=== PATIENT | male | born 1940 | race Caucasian/White ===

== ENCOUNTER 2020-05-21 15:19 | Inpatient (IN) ==
[2020-05-21] MEDS ORDERED: 0.9 % SODIUM CHLORIDE 1,000 ML IV ONE ×2 (16:06→18:40)
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
--- NOTE | 2020-05-21 16:41 | Cat Scan Report ---
CLINICAL INFORMATION: Syncope. History of CVA. COMPARISON: None. TECHNIQUE: 2.5 mm helical slices were obtained in the skull base to vertex. Following reconstruction, axial reformatted images were reviewed at bone and parenchymal windows. The exam was performed using radiation dose optimization techniques including, but not limited to, automated exposure control, adjustment of the mA and/or kV according to patient size and use of iterative reconstruction technique. FINDINGS: The ventricles, sulci, fissures, and cisterns are symmetrically large compatible with mild age-related atrophy.. No extra-axial fluid collections are identified. Mild patchy chronic ischemic changes, in the cerebral white matter, expected for age.. There is no evidence of hemorrhage, mass effect, or edema. Bone windows show no osseous abnormality. IMPRESSION: Mild atrophy and chronic ischemic changes in the cerebral white matter - expected for age.. Interpreted and Authenticated by: Jaspal Arzola 05/21/20
--- NOTE | 2020-05-21 16:46 | XRay Report ---
CLINICAL INFORMATION: syncope COMPARISON: 05/30/2014 FINDINGS: The heart is moderately enlarged but unchanged. Sternotomy changes noted. Mediastinum and pulmonary vessels are normal. The lungs are clear. No effusions. Malunified old right-sided rib fractures seen as before IMPRESSION: Moderate stable cardiomegaly. No acute disease Interpreted and Authenticated by: Jaspal Arzola 05/21/20
[2020-05-21 17:00] LABS: Basophils # (Auto) 0.03 K/mcL (0.00-0.20); Basophils % (Auto) 0.4 % (0.0-2.0); Eosinophils # (Auto) 0.14 K/mcL (0.00-0.70); Eosinophils % (Auto) 2.1 % (0.0-7.0); Hematocrit 40.2 % (41.0-55.0); Lymphocytes # (Auto) 1.83 K/mcL (1.50-4.80); Lymphocytes % (Auto) 27.4 % (15.0-49.0); Mean Corpuscular HGB Conc 32.3 g/dL (31.0-36.0); Mean Platelet Volume 11.3 fL (7.4-10.4); Monocytes # (Auto) 0.88 K/mcL (0.10-0.90); Monocytes % (Auto) 13.2 % (1.0-12.0); Neutrophils % (Auto) 56.9 % (38.0-78.0); Platelet Count 187 K/mcL (140-440); RBC 4.42 M/mcL (4.50-5.90); Red Cell Distribution Width 14.5 % (11.5-14.5); WBC 6.7 K/mcL (4.5-11.0)
[2020-05-21 18:38] LABS: ALT/SGPT 21 U/L (<40); AST/SGOT 19 U/L (<40); Albumin/Globulin Ratio 1.1 (1.0-2.3); Alkaline Phosphatase 109 U/L (39-117); Bilirubin,Total 0.3 mg/dL (0.1-1.0); Blood Urea Nitrogen 18 mg/dL (8-23); Calcium 9.2 mg/dL (8.6-10.4); Carbon Dioxide 23 mmol/L (22-30); Chloride 102 mmol/L (96-108); Globulin 3.6 gm/dL (2.2-3.7); Glomerular Filtration Rate 84; Glucose 123 mg/dL (70-105)
--- NOTE | 2020-05-21 19:59 | Emergency Department Note ---
HPI General Chief complaint: Syncope Stated complaint: Syncope Time Seen by Provider: 05/21/20 15:34 Source: patient Mode of arrival: ambulatory Limitations: no limitations History of Present Illness HPI Narrative: Narrative: Related Data Home Medications Medication Instructions Recorded Confirmed metformin [Fortamet] 1,000 mg PO BID 07/06/15 05/21/20 metoprolol tartrate 25 mg PO DAILY 07/06/15 05/21/20 sitagliptin [Januvia] 100 mg PO DAILY 07/06/15 05/21/20 Aspirin Low Dose 81 mg PO DAILY 05/21/20 05/21/20 atorvastatin 20 mg PO DAILY 05/21/20 05/21/20 glimepiride 2 mg PO DAILY 05/21/20 05/21/20 pioglitazone 30 mg PO DAILY 05/21/20 05/21/20 Allergies Allergy/AdvReac Type Severity Reaction Status Date / Time Penicillins Allergy Hives Verified 07/06/15 08:18 Review of Systems ROS ROS Narrative: Narrative: [facility] Narrative Patient History Narrative: Narrative: Medical/Surgical/Family History All Active Problems (Updated 05/21/20 @ 18:39 by Pierre Jorgensen MD) Syncope (Acute) Diabetes mellitus type 2 in obese (Acute) Hypertension (Acute) Strain of lumbar region (Acute) Medical History (Updated 05/21/20 @ 18:39 by Pierre Jorgensen MD) History of retinal vein occlusion (Acute) Strain of lumbar region (Acute) Surgical History (Updated 05/21/20 @ 16:14 by Pierre Jorgensen MD) History of heart valve replacement (Acute) Social History Smoking Status: Former smoker Exam Narrative Narrative: Narrative: General Limitations: no limitations Course Reevaluation(s) Reevaluation #1: After receiving this patient at change of shift with a CMP pending, I contacted the hospitalist to see about arranging for an overnight observation. Dr. Jordan asked me to run this case by a booster pump oiler and the booster pump oiler felt this patient can stay locally, Dr. Jordan said he would be happy to place into observation. Time: 19:46 Reevaluation #2: I spoke to a booster pump oiler, Dr. Stephens. He suggested observation overnight here locally with telemetry and then an echo tomorrow. He suggested any abnormality that their group could be contacted. He said if the studies were normal, they would recommend discharging the patient with outpatient cardiology follow-up. Time: 19:55 Vital Signs Vital signs: Vital Signs Temperature 97.9 F 05/21/20 15:19 Pulse Rate 68 05/21/20 15:19 Respiratory Rate 20 05/21/20 15:19 Blood Pressure 165/75 05/21/20 15:19 Pulse Oximetry (%) 98 05/21/20 15:19 Temperature 97.9 F 05/21/20 15:19 Pulse Rate 64 05/21/20 19:47 Respiratory Rate 20 05/21/20 15:19 Blood Pressure 149/65 05/21/20 19:47 Pulse Oximetry (%) 96 05/21/20 19:47 MDM MDM Narrative Medical decision making narrative: Narrative: Lab Data Result diagrams: 05/21/20 16:23 05/21/20 17:34 Labs: Lab Results 05/21/20 05/21/20 05/21/20 Range/Units 16:22 16:23 16:23 WBC 6.7 (4.5-11.0) K/mcL RBC 4.42 L (4.50-5.90) M/mcL Hgb 13.0 L (13.5-16.5) g/dL Hct 40.2 L (41.0-55.0) % MCV 91.0 (80.0-100.0) fL MCH 29.4 (26.0-34.0) pg MCHC 32.3 (31.0-36.0) g/dL RDW 14.5 (11.5-14.5) % Plt Count 187 (140-440) K/mcL MPV 11.3 H (7.4-10.4) fL Neut % (Auto) 56.9 (38.0-78.0) % Lymph % (Auto) 27.4 (15.0-49.0) % [place] % (Auto) 13.2 H (1.0-12.0) % Eos % (Auto) 2.1 (0.0-7.0) % Baso % (Auto) 0.4 (0.0-2.0) % Lymph # (Auto) 1.83 (1.50-4.80) K/mcL Tyler # (Auto) 0.88 (0.10-0.90) K/mcL Eos # (Auto) 0.14 (0.00-0.70) K/mcL Baso # (Auto) 0.03 (0.00-0.20) K/mcL Absolute Neutrophils 3.79 (1.80-8.00) K/mcL D-Dimer 0.52 H (0.27-0.50) ug/mL VBG Lactic Acid (0.5-2.0) mmol/L Sodium (133-145) mmol/L Potassium (3.3-5.1) mmol/L Chloride (96-108) mmol/L Carbon Dioxide (22-30) mmol/L Anion Gap (8.0-16.0) BUN (8-23) mg/dL Creatinine (0.7-1.2) mg/dL GFR Calculation Glucose (70-105) mg/dL Calcium (8.6-10.4) mg/dL Magnesium (1.6-2.5) mg/dL Total Bilirubin (0.1-1.0) mg/dL AST (<40) U/L ALT (<40) U/L Alkaline Phosphatase (39-117) U/L Troponin T (<0.03) ng/mL NT-Pro-B Natriuret Pep (<450.0) pg/mL Total Protein (5.9-8.4) gm/dL Albumin (3.2-5.2) gm/dL Globulin (2.2-3.7) gm/dL Albumin/Globulin Ratio (1.0-2.3) Prolactin (4.0-15.2) ng/mL 05/21/20 05/21/20 05/21/20 Range/Units 16:23 16:23 17:34 WBC (4.5-11.0) K/mcL RBC (4.50-5.90) M/mcL Hgb (13.5-16.5) g/dL Hct (41.0-55.0) % MCV (80.0-100.0) fL MCH (26.0-34.0) pg MCHC (31.0-36.0) g/dL RDW (11.5-14.5) % Plt Count (140-440) K/mcL MPV (7.4-10.4) fL Neut % (Auto) (38.0-78.0) % Lymph % (Auto) (15.0-49.0) % Tyler % (Auto) (1.0-12.0) % Eos % (Auto) (0.0-7.0) % Baso % (Auto) (0.0-2.0) % Lymph # (Auto) (1.50-4.80) K/mcL Tyler # (Auto) (0.10-0.90) K/mcL Eos # (Auto) (0.00-0.70) K/mcL Baso # (Auto) (0.00-0.20) K/mcL Absolute Neutrophils (1.80-8.00) K/mcL D-Dimer (0.27-0.50) ug/mL VBG Lactic Acid 2.3 H (0.5-2.0) mmol/L Sodium 140 (133-145) mmol/L Potassium 4.6 (3.3-5.1) mmol/L Chloride 102 (96-108) mmol/L Carbon Dioxide 23 (22-30) mmol/L Anion Gap 15.0 (8.0-16.0) BUN 18 (8-23) mg/dL Creatinine 0.8 (0.7-1.2) mg/dL GFR Calculation 84 Glucose 123 H (70-105) mg/dL Calcium 9.2 (8.6-10.4) mg/dL Magnesium (1.6-2.5) mg/dL Total Bilirubin 0.3 (0.1-1.0) mg/dL AST 19 (<40) U/L ALT 21 (<40) U/L Alkaline Phosphatase 109 (39-117) U/L Troponin T (<0.03) ng/mL NT-Pro-B Natriuret Pep (<450.0) pg/mL Total Protein 7.6 (5.9-8.4) gm/dL Albumin 4.0 (3.2-5.2) gm/dL Globulin 3.6 (2.2-3.7) gm/dL Albumin/Globulin Ratio 1.1 (1.0-2.3) Prolactin (4.0-15.2) ng/mL 05/21/20 05/21/20 Range/Units 17:34 17:34 WBC (4.5-11.0) K/mcL RBC (4.50-5.90) M/mcL Hgb (13.5-16.5) g/dL Hct (41.0-55.0) % MCV (80.0-100.0) fL MCH (26.0-34.0) pg MCHC (31.0-36.0) g/dL RDW (11.5-14.5) % Plt Count (140-440) K/mcL MPV (7.4-10.4) fL Neut % (Auto) (38.0-78.0) % Lymph % (Auto) (15.0-49.0) % Tyler % (Auto) (1.0-12.0) % Eos % (Auto) (0.0-7.0) % Baso % (Auto) (0.0-2.0) % Lymph # (Auto) (1.50-4.80) K/mcL Tyler # (Auto) (0.10-0.90) K/mcL Eos # (Auto) (0.00-0.70) K/mcL Baso # (Auto) (0.00-0.20) K/mcL Absolute Neutrophils (1.80-8.00) K/mcL D-Dimer (0.27-0.50) ug/mL VBG Lactic Acid (0.5-2.0) mmol/L Sodium (133-145) mmol/L Potassium (3.3-5.1) mmol/L Chloride (96-108) mmol/L Carbon Dioxide (22-30) mmol/L Anion Gap (8.0-16.0) BUN (8-23) mg/dL Creatinine (0.7-1.2) mg/dL GFR Calculation Glucose (70-105) mg/dL Calcium (8.6-10.4) mg/dL Magnesium (1.6-2.5) mg/dL Total Bilirubin (0.1-1.0) mg/dL AST (<40) U/L ALT (<40) U/L Alkaline Phosphatase (39-117) U/L Troponin T < 0.01 (<0.03) ng/mL NT-Pro-B Natriuret Pep (<450.0) pg/mL Total Protein (5.9-8.4) gm/dL Albumin (3.2-5.2) gm/dL Globulin (2.2-3.7) gm/dL Albumin/Globulin Ratio (1.0-2.3) Prolactin 13.9 (4.0-15.2) ng/mL Discharge Plan Patient/Caregiver Discharge Instructions Pt seen by YARD PIPE GRADER/PA only: No Clinical Impression: Syncope Qualifiers: Syncope type: unspecified Qualified Code(s): R55 - Syncope and collapse Patient Disposition: Still a Patient Condition: Fair Follow up with: Axel Logan MD [Primary Care Provider] - Prescriptions: No Action metoprolol tartrate 25 MG tablet 25 mg PO DAILY RF: 0 metformin [Fortamet] 1,000 MG tablet extended release 24hr 1,000 mg PO BID RF: 0 Januvia 100 MG tablet 100 mg PO DAILY RF: 0 Aspirin Low Dose 81 mg tablet 81 mg PO DAILY RF: 0 atorvastatin 20 mg tablet 20 mg PO DAILY RF: 0 glimepiride 4 mg tablet 2 mg PO DAILY RF: 0 pioglitazone 30 mg tablet 30 mg PO DAILY RF: 0
[2020-05-21] MEDS ORDERED: IOPAMIDOL 100 ML BOTTLE IV ONE (21:36)
[2020-05-21] MEDS ORDERED: ONDANSETRON 4 MG/2 ML VIAL IV PRN (21:44)
[2020-05-21] MEDS ORDERED: MAGNESIUM SULFATE 2 GM/50 ML BAG IV PRN (21:44)
[2020-05-21] MEDS ORDERED: MELATONIN 3 MG TABLET PO PRN (21:44)
[2020-05-21] MEDS ORDERED: DEXTROSE 31 GM ORAL.SUSP PO PRN (21:44)
[2020-05-21] MEDS ORDERED: POTASSIUM CHLORIDE 40 MEQ in DEXTROSE 5% IN WATER 500 ML IV PRN (21:44)
[2020-05-21] MEDS ORDERED: ACETAMINOPHEN 650 MG/65 ML BAG IV PRN (21:44)
[2020-05-21] MEDS ORDERED: DEXTROSE 50% 50 ML VIAL IV PRN (21:44)
[2020-05-21] MEDS ORDERED: BISACODYL 10 MG SUPP.RECT PR PRN (21:44)
[2020-05-21] MEDS ORDERED: POLYETHYLENE GLYCOL 3350 17 GM PACKET PO PRN (21:44)
[2020-05-21] MEDS ORDERED: ACETAMINOPHEN 325 MG TABLET PO PRN (21:44)
[2020-05-21] MEDS ORDERED: ONDANSETRON 4 MG ODT TABLET SL PRN (21:44)
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
[2020-05-21] MEDS: 0.9 % SODIUM CHLORIDE 1,000 ML IV SCH (22:00)
[2020-05-21] MEDS: DOCUSATE SODIUM 100 MG CAPSULE PO SCH (22:15)
[2020-05-21] MEDS: SENNOSIDES/DOCUSATE SODIUM 1 TAB TABLET PO SCH (22:16)
[2020-05-21] MEDS: INSULIN LISPRO 1 UNIT/0.01 ML UNIT SQ SCH (22:27)
[2020-05-21] MEDS: 0.9 % SODIUM CHLORIDE 10 ML SYRINGE IV SCH (22:35)
[2020-05-21] MEDS: HEPARIN 5,000 UNIT/ML VIAL SQ SCH (22:35)
[2020-05-22] MEDS: 0.9 % SODIUM CHLORIDE 10 ML SYRINGE IV SCH ×3 (04:32→20:15)
[2020-05-22 06:23] LABS: Basophils # (Auto) 0.03 K/mcL (0.00-0.20); Basophils % (Auto) 0.5 % (0.0-2.0); Eosinophils # (Auto) 0.14 K/mcL (0.00-0.70); Eosinophils % (Auto) 2.5 % (0.0-7.0); Hematocrit 36.3 % (41.0-55.0); Hemoglobin 11.5 g/dL (13.5-16.5); Lymphocytes # (Auto) 1.93 K/mcL (1.50-4.80); Lymphocytes % (Auto) 34.6 % (15.0-49.0); Mean Cell Volume 91.9 fL (80.0-100.0); Mean Corpuscular HGB Conc 31.7 g/dL (31.0-36.0); Mean Platelet Volume 11.6 fL (7.4-10.4); Monocytes # (Auto) 0.88 K/mcL (0.10-0.90); Monocytes % (Auto) 15.8 % (1.0-12.0); Neutrophils % (Auto) 46.6 % (38.0-78.0); Platelet Count 152 K/mcL (140-440); RBC 3.95 M/mcL (4.50-5.90); Red Cell Distribution Width 14.6 % (11.5-14.5); WBC 5.6 K/mcL (4.5-11.0)
[2020-05-22 07:11] LABS: ALT/SGPT 17 U/L (<40); AST/SGOT 18 U/L (<40); Albumin 3.6 gm/dL (3.2-5.2); Albumin/Globulin Ratio 1.1 (1.0-2.3); Alkaline Phosphatase 85 U/L (39-117); Bilirubin,Direct < 0.2 mg/dL (<0.3); Bilirubin,Total 0.3 mg/dL (0.1-1.0); Blood Urea Nitrogen 16 mg/dL (8-23); Calcium 8.8 mg/dL (8.6-10.4); Carbon Dioxide 27 mmol/L (22-30); Chloride 106 mmol/L (96-108); Globulin 3.2 gm/dL (2.2-3.7); Glomerular Filtration Rate 70; Glucose 124 mg/dL (70-105); Lactate Dehydrogenase 190 U/L (135-225); Phosphorous 3.7 mg/dL (2.5-4.5); Triglycerides 141 mg/dL (<150); Uric Acid 5.5 mg/dL (2.5-8.0)
[2020-05-22] MEDS: metFORMIN 500 MG TABLET PO SCH ×2 (08:14→17:07)
[2020-05-22] MEDS: HEPARIN 5,000 UNIT/ML VIAL SQ SCH (08:15)
[2020-05-22] MEDS: DOCUSATE SODIUM 100 MG CAPSULE PO SCH ×2 (08:15→08:28)
[2020-05-22] MEDS: MULTIVIT,THER IRON,CA,FA & MIN 1 TABLET PO SCH ×2 (08:15→08:29)
[2020-05-22] MEDS: INSULIN LISPRO 1 UNIT/0.01 ML UNIT SQ SCH ×3 (08:19→17:07)
[2020-05-22] MEDS ORDERED: sitaGLIPtin 100 MG TABLET PO SCH (09:00)
[2020-05-22] MEDS ORDERED: METOPROLOL TARTRATE 25 MG TABLET PO SCH (09:00)
[2020-05-22] MEDS ORDERED: PIOGLITAZONE 15 MG TABLET PO SCH (09:00)
[2020-05-22] MEDS ORDERED: ATORVASTATIN 20 MG TABLET PO SCH (09:00)
[2020-05-22] MEDS ORDERED: ASPIRIN 81 MG TAB.CHEW PO SCH (09:00)
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
[2020-05-22] MEDS: 0.9 % SODIUM CHLORIDE 1,000 ML IV SCH (17:08)
[2020-05-22] MEDS ORDERED: ATROPINE SULFATE 1 MG/10 ML SYRINGE IV ONE ×3 (20:30→21:20)
[2020-05-22] MEDS ORDERED: morphine 4 MG/ML VIAL IV ONE ×2 (20:30→21:15)
[2020-05-22] MEDS ORDERED: morphine 4 MG/ML VIAL ONE ×2 (20:41→21:24)
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
[2020-05-22] MEDS ORDERED: prednisoLONE 1% OPHTH DROPS 1ML BOTTLE OD SCH (21:00)
[2020-05-22] MEDS ORDERED: MIDAZOLAM 2 MG/2 ML VIAL ONE (21:24)
[2020-05-22] MEDS ORDERED: 0.9 % SODIUM CHLORIDE 250 ML IV SCH (21:30)
[2020-05-22] MEDS ORDERED: EPINEPHrine 4 MG in 0.9 % SODIUM CHLORIDE 246 ML IV SCH (21:30)
[2020-05-22] MEDS ORDERED: EPINEPHrine 1 MG/ML AMPUL ONE (21:31)
[2020-05-22] MEDS ORDERED: MIDAZOLAM 2 MG/2 ML VIAL IV ONE (21:45)
[2020-05-23] MEDS: SENNOSIDES/DOCUSATE SODIUM 1 TAB TABLET PO SCH (00:08)
[2020-05-23] MEDS: DOCUSATE SODIUM 100 MG CAPSULE PO SCH (00:09)
[2020-05-23] MEDS: HEPARIN 5,000 UNIT/ML VIAL SQ SCH (00:09)
[2020-05-23] MEDS: INSULIN LISPRO 1 UNIT/0.01 ML UNIT SQ SCH (00:09)
[2020-05-23] MEDS ORDERED: DORZOLAMIDE TIMOLOL OD SCH (09:00)
[2020-05-23] MEDS ORDERED: CARBOXYMETHYLCELLULOSE SODIUM 1 EACH DROPER.GEL OU SCH (09:00)
== END 2020-05-22 22:45 | disposition short-term general hospital (02) | DRG 310 ==
LOC: ICU 15:19 → ED 15:19 → ICU 21:43
PROVIDERS: ADMIT Internal Medicine; ATTEND Internal Medicine

== ENCOUNTER 2023-07-16 16:49 | Inpatient (IN) ==
[2023-07-16] MEDS ORDERED: IOPAMIDOL 100 ML BOTTLE IV ONE (16:50)
[2023-07-16 18:10] LABS: ALT/SGPT 9 U/L (<40); AST/SGOT 19 U/L (<40); Albumin 4.2 gm/dL (3.2-5.2); Albumin/Globulin Ratio 1.3 (1.0-2.3); Alkaline Phosphatase 86 U/L (39-117); Bilirubin,Total 0.5 mg/dL (0.1-1.0); Blood Urea Nitrogen 19 mg/dL (8-23); Calcium 8.8 mg/dL (8.6-10.4); Carbon Dioxide 24 mmol/L (22-30); Chloride 100 mmol/L (96-108); Globulin 3.2 gm/dL (2.2-3.7); Glomerular Filtration Rate 69; Glucose 163 mg/dL (70-105)
[2023-07-16 18:27] LABS: Basophils # (Auto) 0.02 K/mcL (0.00-0.30); Basophils % (Auto) 0.2 % (0.0-2.0); Eosinophils # (Auto) 0.02 K/mcL (0.00-0.70); Eosinophils % (Auto) 0.2 % (0.0-7.0); Hematocrit 38.2 % (40.1-51.0); Hemoglobin 12.4 g/dL (13.7-17.5); Lymphocytes # (Auto) 1.05 K/mcL (1.50-4.80); Mean Corpuscular HGB Conc 32.5 g/dL (31.0-36.0); Monocytes # (Auto) 1.69 K/mcL (0.10-0.90); Monocytes % (Auto) 14.5 % (1.0-12.0); Neutrophils % (Auto) 75.7 % (38.0-78.0); Platelet Count 169 K/mcL (140-440); RBC 4.29 M/mcL (4.63-6.08); Red Cell Distribution Width 13.9 % (11.5-14.5); WBC 11.7 K/mcL (4.5-11.0)
[2023-07-16] MEDS: LACTATED RINGERS 1,000 ML IV ONE (19:50)
[2023-07-16] MEDS: PIPERACILLIN SODIUM/TAZOBACTAM 3.375 GM in DEXTROSE 5% IN WATER 50 ML IV ONE (19:53)
[2023-07-16] MEDS: LACTATED RINGERS 1,000 ML IV SCH (19:53)
[2023-07-16 21:34] LABS: Lymphocytes % 10 % (15-49); Monocytes % (Manual) 10 % (1-12); Platelet Estimate NORMAL (Normal); RBC Morphology NORMAL (Normal); Segmented Neutrophils % 80 % (38-78)
[2023-07-16] MEDS: VANCOMYCIN IV ONE (22:11)
[2023-07-16] MEDS: SODIUM CHLORIDE 0.9% IV ONE (22:11)
[2023-07-16] MEDS ORDERED: DEXTROSE 50% 50 ML VIAL IV PRN (22:49)
[2023-07-16] MEDS ORDERED: POLYETHYLENE GLYCOL 3350 17 GM PACKET PO PRN (22:49)
[2023-07-16] MEDS ORDERED: POTASSIUM CHLORIDE 20 MEQ TABLET PO PRN ×2 (22:49)
[2023-07-16] MEDS ORDERED: MAGNESIUM SULFATE 2 GM/50 ML BAG IV PRN (22:49)
[2023-07-16] MEDS ORDERED: ONDANSETRON 4 MG/2 ML VIAL IV PRN (22:49)
[2023-07-16] MEDS ORDERED: METOPROLOL TARTRATE 5 MG/5 ML VIAL IV PRN (22:49)
[2023-07-16] MEDS ORDERED: POTASSIUM CHLORIDE 40 MEQ in DEXTROSE 5% IN WATER 500 ML IV PRN (22:49)
[2023-07-16] MEDS ORDERED: diphenhydrAMINE 25 MG CAPSULE PO PRN (22:49)
[2023-07-16] MEDS ORDERED: ACETAMINOPHEN 325 MG TABLET PO PRN (22:49)
[2023-07-16] MEDS ORDERED: IPRATROPIUM/ALBUTEROL 3 ML AMPUL.NEB NEB PRN (22:49)
[2023-07-16] MEDS ORDERED: DEXTROSE 31 GM ORAL.SUSP PO PRN (22:49)
[2023-07-16] MEDS ORDERED: SENNOSIDES 1 TABLET PO PRN (22:49)
[2023-07-16] MEDS: 0.9 % SODIUM CHLORIDE 1,000 ML IV SCH (23:24)
[2023-07-17] MEDS: cefTRIAXone 2 GM in DEXTROSE 5% IN WATER 50 ML IV SCH (00:20)
[2023-07-17] MEDS: cefTRIAXone 2 GM VIAL ONE (00:22)
[2023-07-17] MEDS: 0.9 % SODIUM CHLORIDE 10 ML SYRINGE IV SCH (04:30)
[2023-07-17 06:37] LABS: Basophils # (Auto) 0.02 K/mcL (0.00-0.30); Basophils % (Auto) 0.2 % (0.0-2.0); Eosinophils # (Auto) 0.08 K/mcL (0.00-0.70); Eosinophils % (Auto) 0.9 % (0.0-7.0); Hematocrit 32.8 % (40.1-51.0); Hemoglobin 10.7 g/dL (13.7-17.5); Lymphocytes # (Auto) 1.59 K/mcL (1.50-4.80); Lymphocytes % (Auto) 17.7 % (15.5-49.0); Mean Cell Volume 90.1 fL (80.0-100.0); Mean Corpuscular HGB Conc 32.6 g/dL (31.0-36.0); Monocytes # (Auto) 1.37 K/mcL (0.10-0.90); Monocytes % (Auto) 15.3 % (1.0-12.0); Neutrophils % (Auto) 65.6 % (38.0-78.0); Platelet Count 156 K/mcL (140-440); RBC 3.64 M/mcL (4.63-6.08); Red Cell Distribution Width 14.1 % (11.5-14.5)
[2023-07-17 06:59] LABS: ALT/SGPT 7 U/L (<40); AST/SGOT 16 U/L (<40); Albumin 3.6 gm/dL (3.2-5.2); Albumin/Globulin Ratio 1.3 (1.0-2.3); Alkaline Phosphatase 69 U/L (39-117); Bilirubin,Direct < 0.2 mg/dL (0-0.3); Bilirubin,Total 0.4 mg/dL (0.1-1.0); Blood Urea Nitrogen 16 mg/dL (8-23); Calcium 8.4 mg/dL (8.6-10.4); Carbon Dioxide 24 mmol/L (22-30); Chloride 103 mmol/L (96-108); Globulin 2.8 gm/dL (2.2-3.7); Glomerular Filtration Rate 78; Glucose 122 mg/dL (70-105); Lactate Dehydrogenase 177 U/L (135-225); Phosphorous 2.8 mg/dL (2.5-4.5); Triglycerides 100 mg/dL (<150); Uric Acid 4.6 mg/dL (2.5-8.0)
[2023-07-17] MEDS: INSULIN LISPRO 1 UNIT/0.01 ML UNIT SQ SCH (07:48)
[2023-07-17] MEDS: AZITHROMYCIN 250 MG TABLET PO SCH (09:32)
[2023-07-17] MEDS: LISINOPRIL 5 MG TABLET PO SCH (09:33)
[2023-07-17] MEDS: ATORVASTATIN 20 MG TABLET PO SCH (09:34)
[2023-07-17] MEDS: APIXABAN 5 MG TABLET PO SCH (09:34)
[2023-07-17] MEDS: METOPROLOL TARTRATE 25 MG TABLET PO SCH (11:04)
[2023-07-17] MEDS: LORATADINE 10 MG TABLET PO ONE (11:04)
[2023-07-18] MEDS: LORATADINE 10 MG TABLET PO SCH (09:18)
[2023-07-18] MEDS: METOPROLOL SUCCINATE 25 MG TAB.XL.24H PO SCH (09:19)
== END 2023-07-18 13:40 | disposition home or self-care (01) | DRG 871 ==
LOC: ED 16:49 → MEDSUR 22:45
PROVIDERS: ADMIT Internal Medicine; ATTEND Internal Medicine

== ENCOUNTER 2023-10-19 07:46 | Inpatient (IN) ==
[2023-10-19] MEDS ORDERED: IOPAMIDOL 100 ML BOTTLE IV ONE (07:47)
[2023-10-19 08:49] LABS: Basophils # (Auto) 0.02 K/mcL (0.00-0.30); Basophils % (Auto) 0.2 % (0.0-2.0); Eosinophils # (Auto) 0.08 K/mcL (0.00-0.70); Eosinophils % (Auto) 0.7 % (0.0-7.0); Hematocrit 40.6 % (40.1-51.0); Hemoglobin 12.8 g/dL (13.7-17.5); Lymphocytes # (Auto) 1.59 K/mcL (1.50-4.80); Lymphocytes % (Auto) 14.8 % (15.5-49.0); Mean Cell Volume 91.2 fL (80.0-100.0); Mean Corpuscular HGB Conc 31.5 g/dL (31.0-36.0); Mean Platelet Volume 10.4 fL (8.8-12.5); Monocytes # (Auto) 0.92 K/mcL (0.10-0.90); Monocytes % (Auto) 8.5 % (1.0-12.0); Neutrophils % (Auto) 75.6 % (38.0-78.0); Platelet Count 189 K/mcL (140-440); RBC 4.45 M/mcL (4.63-6.08); Red Cell Distribution Width 14.3 % (11.5-14.5); WBC 10.8 K/mcL (4.5-11.0)
[2023-10-19 08:51] LABS: ABG Methemoglobin 0.3 % (0.4-1.5); Total Hemoglobin 13.6 gm/Dl (13.5-16.5); VBG Base Excess -3 (-2-3); VBG HCO3 23.7 mmol/L (24.0-28.0); VBG Oxygen Saturation 45.5 % (40.0-70.0); VBG PCO2 47.5 mmHg (41.0-51.0); VBG PH 7.32 U (7.32-7.42); VBG PO2 25.8 mmHg (25.0-40.0); VBG Total CO2 25.2 mmol/L (25.0-29.0)
[2023-10-19 09:05] LABS: ALT/SGPT 17 U/L (<40); AST/SGOT 23 U/L (<40); Albumin 4.3 gm/dL (3.2-5.2); Albumin/Globulin Ratio 1.2 (1.0-2.3); Alkaline Phosphatase 108 U/L (39-117); Bilirubin,Total 0.5 mg/dL (0.1-1.0); Blood Urea Nitrogen 18 mg/dL (8-23); Calcium 9.4 mg/dL (8.6-10.4); Carbon Dioxide 24 mmol/L (22-30); Chloride 102 mmol/L (96-108); Globulin 3.7 gm/dL (2.2-3.7); Glomerular Filtration Rate 78; Glucose 170 mg/dL (70-105)
[2023-10-19] MEDS: LEVOFLOXACIN 750 MG/150 ML BAG IV ONE (09:06)
[2023-10-19 09:36] LABS: INR 1.3 (0.9-1.1); Prothrombin Time 16.7 sec (11.9-14.5)
[2023-10-19 10:09] LABS: Appearance,Urine Clear (Clear); Bacteria,Urine 0 /hpf (0); Bilirubin,Urine Negative (Negative); Color,Urine Yellow; Culture Indicated,Urine No; Glucose,Urine (UA) Negative (Negative); Ketones,Urine Trace mg/dL (Negative); Leukocyte Esterase,Urine Negative /uL (Negative); Nitrate,Urine Negative (Negative); Protein,Urine Trace mg/dL (Negative); Urine Blood Moderate ery/mcL (Negative); Urine RBC 0 /hpf (0-3); Urine Squamous Epithelial Cell 0 /hpf (0-4); Urine WBC 0 /hpf (0-4); Urobilinogen,Urine Normal
[2023-10-19] MEDS: 0.9 % SODIUM CHLORIDE 1,000 ML IV ONE (11:51)
[2023-10-19] MEDS: 0.9 % SODIUM CHLORIDE 500 ML IV ONE ×2 (14:23→15:53)
[2023-10-19] MEDS: 0.9 % SODIUM CHLORIDE 250 ML IV SCH (15:53)
[2023-10-19] MEDS ORDERED: BISACODYL 5 MG TABLET PO PRN (17:04)
[2023-10-19] MEDS ORDERED: SENNOSIDES 1 TABLET PO PRN (17:04)
[2023-10-19] MEDS ORDERED: IPRATROPIUM/ALBUTEROL 3 ML AMPUL.NEB NEB PRN (17:04)
[2023-10-19] MEDS ORDERED: MAGNESIUM HYDROXIDE 30 ML ORAL.SUSP PO PRN (17:04)
[2023-10-19] MEDS ORDERED: ONDANSETRON 4 MG/2 ML VIAL IV PRN (17:04)
[2023-10-19] MEDS ORDERED: ACETAMINOPHEN 325 MG TABLET PO PRN (17:04)
[2023-10-19 17:23] LABS: Basophils # (Auto) 0.01 K/mcL (0.00-0.30); Basophils % (Auto) 0.1 % (0.0-2.0); Eosinophils # (Auto) 0 K/mcL (0.00-0.70); Eosinophils % (Auto) 0 % (0.0-7.0); Hematocrit 35.4 % (40.1-51.0); Hemoglobin 11.2 g/dL (13.7-17.5); Lymphocytes # (Auto) 0.78 K/mcL (1.50-4.80); Lymphocytes % (Auto) 6.3 % (15.5-49.0); Mean Corpuscular HGB Conc 31.6 g/dL (31.0-36.0); Monocytes # (Auto) 1.92 K/mcL (0.10-0.90); Monocytes % (Auto) 15.6 % (1.0-12.0); Neutrophils % (Auto) 77.8 % (38.0-78.0); Platelet Count 150 K/mcL (140-440); RBC 3.89 M/mcL (4.63-6.08); Red Cell Distribution Width 14.5 % (11.5-14.5); WBC 12.3 K/mcL (4.5-11.0)
[2023-10-19] MEDS: LACTATED RINGERS 1,000 ML IV SCH (17:33)
[2023-10-19] MEDS: APIXABAN 5 MG TABLET PO SCH (21:20)
[2023-10-19] MEDS: DOCUSATE SODIUM 100 MG CAPSULE PO SCH (21:20)
[2023-10-19] MEDS: 0.9 % SODIUM CHLORIDE 10 ML SYRINGE IV SCH (21:22)
[2023-10-20] MEDS: NOREPINEPHRINE BITARTRATE 8 MG in 0.9 % SODIUM CHLORIDE 242 ML IV SCH (00:32)
[2023-10-20 06:36] LABS: Basophils # (Auto) 0.02 K/mcL (0.00-0.30); Basophils % (Auto) 0.2 % (0.0-2.0); Eosinophils # (Auto) 0.03 K/mcL (0.00-0.70); Eosinophils % (Auto) 0.3 % (0.0-7.0); Hematocrit 32.7 % (40.1-51.0); Hemoglobin 10.2 g/dL (13.7-17.5); Lymphocytes # (Auto) 1.21 K/mcL (1.50-4.80); Lymphocytes % (Auto) 10.7 % (15.5-49.0); Mean Cell Volume 91.9 fL (80.0-100.0); Mean Corpuscular HGB Conc 31.2 g/dL (31.0-36.0); Monocytes % (Auto) 14.1 % (1.0-12.0); Neutrophils % (Auto) 73.8 % (38.0-78.0); Platelet Count 144 K/mcL (140-440); RBC 3.56 M/mcL (4.63-6.08); Red Cell Distribution Width 14.7 % (11.5-14.5); WBC 11.4 K/mcL (4.5-11.0)
[2023-10-20 07:22] LABS: ALT/SGPT 9 U/L (<40); AST/SGOT 28 U/L (<40); Albumin 3.4 gm/dL (3.2-5.2); Albumin/Globulin Ratio 1.2 (1.0-2.3); Alkaline Phosphatase 67 U/L (39-117); Bilirubin,Total 0.4 mg/dL (0.1-1.0); Blood Urea Nitrogen 23 mg/dL (8-23); Calcium 9.2 mg/dL (8.6-10.4); Carbon Dioxide 23 mmol/L (22-30); Chloride 106 mmol/L (96-108); Globulin 2.8 gm/dL (2.2-3.7); Glomerular Filtration Rate 78; Glucose 161 mg/dL (70-105)
[2023-10-20] MEDS: LEVOFLOXACIN 750 MG/150 ML BAG IV SCH (09:27)
[2023-10-20] MEDS ORDERED: CARBOXYMETHYLCELLULOSE SODIUM 1 EACH DROPER.GEL OU PRN (20:47)
[2023-10-20] MEDS: APIXABAN 5 MG TABLET PO SCH (21:06)
[2023-10-21 06:24] LABS: Basophils # (Auto) 0.02 K/mcL (0.00-0.30); Basophils % (Auto) 0.2 % (0.0-2.0); Eosinophils # (Auto) 0.06 K/mcL (0.00-0.70); Eosinophils % (Auto) 0.7 % (0.0-7.0); Hematocrit 34.8 % (40.1-51.0); Hemoglobin 10.9 g/dL (13.7-17.5); Lymphocytes # (Auto) 1.56 K/mcL (1.50-4.80); Lymphocytes % (Auto) 17.4 % (15.5-49.0); Mean Cell Volume 92.1 fL (80.0-100.0); Mean Corpuscular HGB Conc 31.3 g/dL (31.0-36.0); Mean Platelet Volume 11.1 fL (8.8-12.5); Monocytes % (Auto) 13.3 % (1.0-12.0); Platelet Count 143 K/mcL (140-440); RBC 3.78 M/mcL (4.63-6.08); Red Cell Distribution Width 14.7 % (11.5-14.5)
[2023-10-21 06:52] LABS: Phosphorous 2.4 mg/dL (2.5-4.5)
[2023-10-21 07:02] LABS: ALT/SGPT 8 U/L (<40); AST/SGOT 24 U/L (<40); Albumin 3.5 gm/dL (3.2-5.2); Albumin/Globulin Ratio 1.1 (1.0-2.3); Alkaline Phosphatase 69 U/L (39-117); Bilirubin,Total 0.4 mg/dL (0.1-1.0); Blood Urea Nitrogen 17 mg/dL (8-23); Calcium 9.2 mg/dL (8.6-10.4); Carbon Dioxide 20 mmol/L (22-30); Chloride 105 mmol/L (96-108); Globulin 3.2 gm/dL (2.2-3.7); Glomerular Filtration Rate 78; Glucose 192 mg/dL (70-105)
[2023-10-21] MEDS: ATORVASTATIN 20 MG TABLET PO SCH (08:51)
[2023-10-21] MEDS: Dorzolamide-Timolol [Cosopt] 22.3-6.8 mg/mL drops OD SCH (08:52)
[2023-10-21] MEDS: SODIUM PHOSPHATE 15 MMOL in DEXTROSE 5% IN WATER 250 ML IV ONE (09:46)
[2023-10-22 06:30] LABS: Basophils # (Auto) 0.02 K/mcL (0.00-0.30); Basophils % (Auto) 0.3 % (0.0-2.0); Eosinophils % (Auto) 1.5 % (0.0-7.0); Hematocrit 31.5 % (40.1-51.0); Hemoglobin 9.9 g/dL (13.7-17.5); Lymphocytes # (Auto) 1.17 K/mcL (1.50-4.80); Lymphocytes % (Auto) 17.1 % (15.5-49.0); Mean Cell Volume 91.6 fL (80.0-100.0); Mean Corpuscular HGB Conc 31.4 g/dL (31.0-36.0); Mean Platelet Volume 11.4 fL (8.8-12.5); Monocytes # (Auto) 0.77 K/mcL (0.10-0.90); Monocytes % (Auto) 11.3 % (1.0-12.0); Neutrophils % (Auto) 69.7 % (38.0-78.0); Platelet Count 142 K/mcL (140-440); RBC 3.44 M/mcL (4.63-6.08); Red Cell Distribution Width 14.7 % (11.5-14.5); WBC 6.8 K/mcL (4.5-11.0)
[2023-10-22 06:50] LABS: Phosphorous 2.5 mg/dL (2.5-4.5)
[2023-10-22 06:53] LABS: ALT/SGPT 11 U/L (<40); AST/SGOT 19 U/L (<40); Albumin 3.3 gm/dL (3.2-5.2); Albumin/Globulin Ratio 1.1 (1.0-2.3); Alkaline Phosphatase 68 U/L (39-117); Bilirubin,Total 0.4 mg/dL (0.1-1.0); Blood Urea Nitrogen 16 mg/dL (8-23); Calcium 9.1 mg/dL (8.6-10.4); Carbon Dioxide 25 mmol/L (22-30); Chloride 106 mmol/L (96-108); Glomerular Filtration Rate 82; Glucose 190 mg/dL (70-105)
[2023-10-22] MEDS: LEVOFLOXACIN 750 MG TABLET PO SCH (08:40)
[2023-10-23 07:02] LABS: Basophils # (Auto) 0.02 K/mcL (0.00-0.30); Basophils % (Auto) 0.3 % (0.0-2.0); Eosinophils # (Auto) 0.09 K/mcL (0.00-0.70); Eosinophils % (Auto) 1.5 % (0.0-7.0); Hematocrit 33.2 % (40.1-51.0); Hemoglobin 10.6 g/dL (13.7-17.5); Lymphocytes # (Auto) 1.19 K/mcL (1.50-4.80); Lymphocytes % (Auto) 20.4 % (15.5-49.0); Mean Cell Volume 89.7 fL (80.0-100.0); Mean Corpuscular HGB Conc 31.9 g/dL (31.0-36.0); Mean Platelet Volume 11.4 fL (8.8-12.5); Monocytes # (Auto) 0.85 K/mcL (0.10-0.90); Monocytes % (Auto) 14.6 % (1.0-12.0); Neutrophils % (Auto) 62.7 % (38.0-78.0); Platelet Count 171 K/mcL (140-440); Red Cell Distribution Width 14.5 % (11.5-14.5); WBC 5.8 K/mcL (4.5-11.0)
[2023-10-23 07:23] LABS: ALT/SGPT 13 U/L (<40); AST/SGOT 19 U/L (<40); Albumin 3.4 gm/dL (3.2-5.2); Albumin/Globulin Ratio 1.1 (1.0-2.3); Alkaline Phosphatase 72 U/L (39-117); Bilirubin,Total 0.5 mg/dL (0.1-1.0); Blood Urea Nitrogen 14 mg/dL (8-23); C-Reactive Protein 9.43 mg/dL (0.03-0.80); Calcium 9.4 mg/dL (8.6-10.4); Carbon Dioxide 25 mmol/L (22-30); Chloride 104 mmol/L (96-108); Globulin 3.2 gm/dL (2.2-3.7); Glomerular Filtration Rate 82; Glucose 200 mg/dL (70-105)
== END 2023-10-23 11:15 | disposition home or self-care (01) | DRG 871 ==
LOC: ED 07:46 → MEDSUR 16:57 → ICU 22:48 → MEDSUR 10-21 14:16
PROVIDERS: ADMIT Student in an Organized Health Care Education/Training Program; ATTEND Student in an Organized Health Care Education/Training Program

== ENCOUNTER 2024-02-20 16:56 | Inpatient (IN) ==
[2024-02-20] MEDS ORDERED: IOPAMIDOL 100 ML BOTTLE IV ONE (16:57)
[2024-02-20] MEDS: LEVOFLOXACIN 750 MG/150 ML BAG IV ONE (18:00)
[2024-02-20] MEDS: FUROSEMIDE 20 MG/2 ML VIAL IV ONE (18:00)
[2024-02-20 18:02] LABS: Basophils # (Auto) 0.02 K/mcL (0.00-0.30); Basophils % (Auto) 0.2 % (0.0-2.0); Eosinophils # (Auto) 0 K/mcL (0.00-0.70); Eosinophils % (Auto) 0 % (0.0-7.0); Hematocrit 34.8 % (40.1-51.0); Hemoglobin 10.9 g/dL (13.7-17.5); INR 1.4 (0.9-1.1); Lymphocytes # (Auto) 0.94 K/mcL (1.50-4.80); Lymphocytes % (Auto) 10.5 % (15.5-49.0); Mean Cell Volume 92.8 fL (80.0-100.0); Mean Corpuscular HGB Conc 31.3 g/dL (31.0-36.0); Mean Platelet Volume 11.3 fL (8.8-12.5); Monocytes # (Auto) 1.74 K/mcL (0.10-0.90); Monocytes % (Auto) 19.4 % (1.0-12.0); Neutrophils % (Auto) 69.5 % (38.0-78.0); Platelet Count 153 K/mcL (140-440); Prothrombin Time 17.4 sec (11.9-14.5); RBC 3.75 M/mcL (4.63-6.08); Red Cell Distribution Width 14.9 % (11.5-14.5)
[2024-02-20 18:24] LABS: ALT/SGPT 21 U/L (<40); AST/SGOT 22 U/L (<40); Albumin 3.7 gm/dL (3.2-5.2); Albumin/Globulin Ratio 1.1 (1.0-2.3); Alkaline Phosphatase 80 U/L (39-117); Bilirubin,Total 0.7 mg/dL (0.1-1.0); Blood Urea Nitrogen 19 mg/dL (8-23); Calcium 8.3 mg/dL (8.6-10.4); Carbon Dioxide 18 mmol/L (22-30); Chloride 100 mmol/L (96-108); Globulin 3.3 gm/dL (2.2-3.7); Glomerular Filtration Rate 55; Glucose 402 mg/dL (70-105); Potassium 3.9 mmol/L (3.3-5.1); Sodium 136 mmol/L (133-145)
[2024-02-20] MEDS: INSULIN REGULAR, HUMAN 1 UNIT/0.01 ML UNIT IV ONE (19:06)
[2024-02-20] MEDS: ACETAMINOPHEN 1,000 MG/100 ML BAG IV ONE (20:11)
[2024-02-20 21:42] LABS: Appearance,Urine Clear (Clear); Bacteria,Urine 0 /hpf (0); Bilirubin,Urine Negative (Negative); Color,Urine Yellow; Glucose,Urine (UA) >=1000 mg/dL (Negative); Ketones,Urine Negative (Negative); Leukocyte Esterase,Urine Negative /uL (Negative); Nitrate,Urine Negative (Negative); PH,Urine 5.5 (5.0-9.0); Protein,Urine 100 mg/dL (Negative); Urine Blood Trace-lysed ery/mcL (Negative); Urine RBC < 1 /hpf (0-3); Urine Squamous Epithelial Cell 0 /hpf (0-4); Urine WBC < 1 /hpf (0-4); Urobilinogen,Urine Normal
[2024-02-21] MEDS ORDERED: SENNOSIDES 1 TABLET PO PRN (01:25)
[2024-02-21] MEDS ORDERED: ACETAMINOPHEN 325 MG TABLET PO PRN (01:25)
[2024-02-21] MEDS ORDERED: ONDANSETRON 4 MG/2 ML VIAL IV PRN (01:25)
[2024-02-21] MEDS ORDERED: DEXTROSE 50% 50 ML VIAL IV PRN (01:25)
[2024-02-21] MEDS ORDERED: LACTULOSE 20 GM/30 ML ORAL.SOL PO PRN (01:25)
[2024-02-21] MEDS ORDERED: DEXTROSE 31 GM ORAL.SUSP PO PRN (01:25)
[2024-02-21 02:38] LABS: Pro:Crea Ratio 0.49 (<0.20)
[2024-02-21] MEDS: FUROSEMIDE 20 MG/2 ML VIAL IV ONE (04:11)
[2024-02-21] MEDS: PANTOPRAZOLE 40 MG VIAL IV ONE (05:47)
[2024-02-21 06:40] LABS: ALT/SGPT 17 U/L (<40); AST/SGOT 17 U/L (<40); Albumin 3.3 gm/dL (3.2-5.2); Alkaline Phosphatase 70 U/L (39-117); Bilirubin,Direct 0.2 mg/dL (<0.3); Bilirubin,Total 0.5 mg/dL (0.1-1.0); Blood Urea Nitrogen 22 mg/dL (8-23); Calcium 8.5 mg/dL (8.6-10.4); Carbon Dioxide 24 mmol/L (22-30); Chloride 100 mmol/L (96-108); Globulin 3.3 gm/dL (2.2-3.7); Glomerular Filtration Rate 61; Glucose 209 mg/dL (70-105); Lactate Dehydrogenase 192 U/L (135-225); Phosphorous 2.5 mg/dL (2.5-4.5); Potassium 3.6 mmol/L (3.3-5.1); Sodium 135 mmol/L (133-145); Triglycerides 72 mg/dL (<150); Uric Acid 5.8 mg/dL (2.5-8.0)
[2024-02-21] MEDS: 0.9 % SODIUM CHLORIDE 10 ML SYRINGE IV SCH (07:28)
[2024-02-21] MEDS: INSULIN LISPRO 1 UNIT/0.01 ML UNIT SQ SCH (07:35)
[2024-02-21 07:57] LABS: Basophils # (Auto) 0.05 K/mcL (0.00-0.30); Basophils % (Auto) 0.6 % (0.0-2.0); Eosinophils # (Auto) 0.01 K/mcL (0.00-0.70); Eosinophils % (Auto) 0.1 % (0.0-7.0); Hematocrit 33.2 % (40.1-51.0); Hemoglobin 10.3 g/dL (13.7-17.5); Lymphocytes # (Auto) 1.01 K/mcL (1.50-4.80); Lymphocytes % (Auto) 11.9 % (15.5-49.0); Mean Cell Volume 94.1 fL (80.0-100.0); Mean Platelet Volume 11.8 fL (8.8-12.5); Monocytes # (Auto) 1.75 K/mcL (0.10-0.90); Monocytes % (Auto) 20.6 % (1.0-12.0); Platelet Count 126 K/mcL (140-440); RBC 3.53 M/mcL (4.63-6.08); Red Cell Distribution Width 15.4 % (11.5-14.5); WBC 8.5 K/mcL (4.5-11.0)
[2024-02-21] MEDS: LEVOFLOXACIN 750 MG/150 ML BAG IV SCH (08:40)
[2024-02-21] MEDS: DOCUSATE SODIUM 100 MG CAPSULE PO SCH (08:44)
[2024-02-21] MEDS: HEPARIN SOD,PORK IN 0.45% NACL 25,000 UNIT in PREMIX 1 BAG IV SCH (10:34)
[2024-02-21] MEDS: HEPARIN SOD,PORK IN 0.45% NACL 500 ML IV ONE (12:37)
[2024-02-21] MEDS: DORZOLAMIDE TIMOLOL OD SCH (13:19)
[2024-02-21] MEDS: EYE OD SCH (13:19)
[2024-02-21] MEDS: INSULIN GLARGINE, HUMAN 1 UNIT/0.01 ML SQ SCH (20:37)
[2024-02-22] MEDS: HEPARIN SOD,PORK IN 0.45% NACL 500 ML IV ONE (02:21)
[2024-02-22 03:59] LABS: Basophils # (Auto) 0.02 K/mcL (0.00-0.30); Basophils % (Auto) 0.3 % (0.0-2.0); Eosinophils # (Auto) 0.04 K/mcL (0.00-0.70); Eosinophils % (Auto) 0.6 % (0.0-7.0); Hematocrit 30.6 % (40.1-51.0); Hemoglobin 9.9 g/dL (13.7-17.5); Lymphocytes # (Auto) 1.31 K/mcL (1.50-4.80); Mean Cell Volume 89.2 fL (80.0-100.0); Mean Corpuscular HGB Conc 32.4 g/dL (31.0-36.0); Mean Platelet Volume 11.2 fL (8.8-12.5); Monocytes # (Auto) 1.08 K/mcL (0.10-0.90); Monocytes % (Auto) 16.5 % (1.0-12.0); Neutrophils % (Auto) 62.3 % (38.0-78.0); Platelet Count 129 K/mcL (140-440); RBC 3.43 M/mcL (4.63-6.08); Red Cell Distribution Width 14.7 % (11.5-14.5); WBC 6.5 K/mcL (4.5-11.0)
[2024-02-22 04:18] LABS: ALT/SGPT 14 U/L (<40); AST/SGOT 17 U/L (<40); Albumin 3.2 gm/dL (3.2-5.2); Albumin/Globulin Ratio 0.9 (1.0-2.3); Alkaline Phosphatase 68 U/L (39-117); Bilirubin,Direct 0.2 mg/dL (<0.3); Bilirubin,Total 0.5 mg/dL (0.1-1.0); Blood Urea Nitrogen 18 mg/dL (8-23); Calcium 8.5 mg/dL (8.6-10.4); Carbon Dioxide 23 mmol/L (22-30); Chloride 102 mmol/L (96-108); Globulin 3.4 gm/dL (2.2-3.7); Glomerular Filtration Rate 78; Glucose 141 mg/dL (70-105); Lactate Dehydrogenase 178 U/L (135-225); Potassium 3.4 mmol/L (3.3-5.1); Sodium 136 mmol/L (133-145); Triglycerides 100 mg/dL (<150); Uric Acid 5.5 mg/dL (2.5-8.0)
[2024-02-22] MEDS: POTASSIUM CHLORIDE 20 MEQ TABLET PO ONE (08:55)
[2024-02-22] MEDS: FUROSEMIDE 40 MG/4 ML VIAL IV SCH (08:55)
[2024-02-22] MEDS: APIXABAN 5 MG TABLET PO SCH (08:55)
[2024-02-22] MEDS: LEVOFLOXACIN 750 MG TABLET PO SCH (08:55)
[2024-02-22] MEDS ORDERED: LOPERAMIDE 2 MG CAPSULE PO PRN (11:21)
[2024-02-22] MEDS: FLU VACC TS2024-25(65YR UP)/PF 180 MCG/0.5 ML SYRINGE IM ONE (13:52)
[2024-02-23 09:00] LABS: Blood Urea Nitrogen 20 mg/dL (8-23); Calcium 8.9 mg/dL (8.6-10.4); Carbon Dioxide 25 mmol/L (22-30); Chloride 101 mmol/L (96-108); Glomerular Filtration Rate 78; Glucose 241 mg/dL (70-105); Potassium 3.4 mmol/L (3.3-5.1); Sodium 138 mmol/L (133-145)
[2024-02-23] MEDS: FLU VACC TS2024-25(65YR UP)/PF 180 MCG/0.5 ML SYRINGE IM ONE (09:10)
== END 2024-02-23 11:30 | disposition home or self-care (01) | DRG 189 ==
LOC: ED 16:56 → ICU 02-21 01:18
PROVIDERS: ADMIT Internal Medicine; ATTEND Internal Medicine

== ENCOUNTER 2024-06-18 20:13 | Inpatient (IN) ==
[2024-06-18] MEDS: DEXTROSE 5%-NS 1,000 ML IV SCH (20:40)
[2024-06-18 20:53] LABS: Basophils # (Auto) 0 K/mcL (0.00-0.30); Basophils % (Auto) 0 % (0.0-2.0); Eosinophils # (Auto) 0 K/mcL (0.00-0.70); Eosinophils % (Auto) 0 % (0.0-7.0); Hematocrit 35.4 % (40.1-51.0); Hemoglobin 11.3 g/dL (13.7-17.5); Lymphocytes # (Auto) 1.19 K/mcL (1.50-4.80); Lymphocytes % (Auto) 31.1 % (15.5-49.0); Mean Cell Volume 88.1 fL (80.0-100.0); Mean Corpuscular HGB Conc 31.9 g/dL (31.0-36.0); Mean Platelet Volume 11.2 fL (8.8-12.5); Monocytes # (Auto) 0.48 K/mcL (0.10-0.90); Monocytes % (Auto) 12.5 % (1.0-12.0); Neutrophils % (Auto) 56.1 % (38.0-78.0); Platelet Count 130 K/mcL (140-440); RBC 4.02 M/mcL (4.63-6.08); Red Cell Distribution Width 16.5 % (11.5-14.5); WBC 3.8 K/mcL (4.5-11.0)
[2024-06-18 21:08] LABS: ALT/SGPT 22 U/L (<40); AST/SGOT 42 U/L (<40); Albumin 3.5 gm/dL (3.2-5.2); Alkaline Phosphatase 59 U/L (39-117); Bilirubin,Total 0.4 mg/dL (0.1-1.0); Blood Urea Nitrogen 34 mg/dL (8-23); Calcium 8.5 mg/dL (8.6-10.4); Carbon Dioxide 19 mmol/L (22-30); Chloride 104 mmol/L (96-108); Globulin 3.6 gm/dL (2.2-3.7); Glomerular Filtration Rate 55; Glucose 81 mg/dL (70-105); Potassium 3.9 mmol/L (3.3-5.1); Sodium 137 mmol/L (133-145)
[2024-06-19] MEDS: DEXTROSE 50% 50 ML SYRINGE IV ONE (03:55)
[2024-06-19] MEDS: DEXTROSE 5%-1/2NS 1,000 ML IV SCH (04:14)
[2024-06-19] MEDS: OCTREOTIDE ACETATE 50 MCG/ML AMPUL SQ ONE (04:25)
[2024-06-19] MEDS ORDERED: ONDANSETRON 4 MG/2 ML VIAL IV PRN ×2 (07:59→10:31)
[2024-06-19] MEDS ORDERED: POLYETHYLENE GLYCOL 3350 17 GM PACKET PO PRN (10:31)
[2024-06-19] MEDS ORDERED: SENNOSIDES 1 TABLET PO PRN (10:31)
[2024-06-19] MEDS ORDERED: POTASSIUM CHLORIDE 20 MEQ TABLET PO PRN ×2 (10:31)
[2024-06-19] MEDS ORDERED: IPRATROPIUM/ALBUTEROL 3 ML AMPUL.NEB NEB PRN (10:31)
[2024-06-19] MEDS ORDERED: METOCLOPRAMIDE 10 MG/2 ML VIAL IV PRN (10:31)
[2024-06-19] MEDS ORDERED: POTASSIUM CHLORIDE 40 MEQ in DEXTROSE 5% IN WATER 500 ML IV PRN (10:31)
[2024-06-19] MEDS ORDERED: ACETAMINOPHEN 325 MG TABLET PO PRN (10:32)
[2024-06-19] MEDS ORDERED: DEXTROSE 50% 50 ML VIAL IV PRN (10:32)
[2024-06-19 12:32] LABS: C-Reactive Protein 2.47 mg/dL (0.03-0.80)
[2024-06-19 12:44] LABS: Hemoglobin A1C 6.4 % Hgb (4.0-6.0)
[2024-06-19] MEDS: SODIUM BICARBONATE 650 MG TABLET PO SCH (13:33)
[2024-06-19] MEDS: INSULIN LISPRO 1 UNIT/0.01 ML UNIT SQ SCH ×3 (13:34→20:17)
[2024-06-19] MEDS: 0.9 % SODIUM CHLORIDE 10 ML SYRINGE IV SCH (15:11)
[2024-06-19 19:56] LABS: Appearance,Urine Clear (Clear); Bilirubin,Urine Negative (Negative); Color,Urine Yellow; Glucose,Urine (UA) 500 mg/dL (Negative); Ketones,Urine Negative (Negative); Leukocyte Esterase,Urine Negative /uL (Negative); Nitrate,Urine Negative (Negative); PH,Urine 5.5 (5.0-9.0); Protein,Urine 30 mg/dL (Negative); Urine Blood Trace-intact ery/mcL (Negative); Urine Hyaline Cast 18 /lph (0-2); Urine RBC 2 /hpf (0-3); Urine Squamous Epithelial Cell 1 /hpf (0-4); Urine WBC 3 /hpf (0-4); Urobilinogen,Urine Normal
[2024-06-19] MEDS: DOCUSATE SODIUM 100 MG CAPSULE PO SCH (20:17)
[2024-06-19] MEDS ORDERED: CARBOXYMETHYLCELLULOSE SODIUM 1 EACH DROPER.GEL OU PRN (20:52)
[2024-06-19] MEDS: APIXABAN 5 MG TABLET PO SCH (21:19)
[2024-06-19] MEDS: ATORVASTATIN 20 MG TABLET PO SCH (21:19)
[2024-06-19] MEDS: BENZOCAINE/MENTHOL 1 LOZENGE PO PRN (21:19)
[2024-06-19] MEDS: DEXTROSE 31 GM ORAL.SUSP PO PRN (22:50)
[2024-06-20] MEDS ORDERED: INSULIN LISPRO 1 UNIT/0.01 ML UNIT SQ SCH (01:00)
[2024-06-20 06:05] LABS: Basophils # (Auto) 0.01 K/mcL (0.00-0.30); Basophils % (Auto) 0.2 % (0.0-2.0); Eosinophils # (Auto) 0.01 K/mcL (0.00-0.70); Eosinophils % (Auto) 0.2 % (0.0-7.0); Hematocrit 32.1 % (40.1-51.0); Hemoglobin 10.4 g/dL (13.7-17.5); Lymphocytes % (Auto) 27.8 % (15.5-49.0); Mean Cell Volume 87.2 fL (80.0-100.0); Mean Corpuscular HGB Conc 32.4 g/dL (31.0-36.0); Monocytes # (Auto) 0.49 K/mcL (0.10-0.90); Monocytes % (Auto) 9.7 % (1.0-12.0); Neutrophils % (Auto) 61.9 % (38.0-78.0); Platelet Count 129 K/mcL (140-440); RBC 3.68 M/mcL (4.63-6.08); Red Cell Distribution Width 16.5 % (11.5-14.5)
[2024-06-20 06:41] LABS: ALT/SGPT 18 U/L (<40); AST/SGOT 31 U/L (<40); Albumin 3.2 gm/dL (3.2-5.2); Alkaline Phosphatase 54 U/L (39-117); Bilirubin,Direct 0.2 mg/dL (<0.3); Bilirubin,Total 0.4 mg/dL (0.1-1.0); Blood Urea Nitrogen 24 mg/dL (8-23); Calcium 8.3 mg/dL (8.6-10.4); Carbon Dioxide 20 mmol/L (22-30); Chloride 109 mmol/L (96-108); Globulin 3.2 gm/dL (2.2-3.7); Glomerular Filtration Rate 82; Glucose 134 mg/dL (70-105); Lactate Dehydrogenase 251 U/L (135-225); Phosphorous 2.3 mg/dL (2.5-4.5); Potassium 3.9 mmol/L (3.3-5.1); Sodium 140 mmol/L (133-145); Triglycerides 113 mg/dL (<150)
[2024-06-20] MEDS ORDERED: ENALAPRILAT 1.25 MG/ML VIAL IV PRN (07:47)
[2024-06-20] MEDS ORDERED: DEXTROSE 31 GM ORAL.SUSP PO PRN (08:52)
[2024-06-20] MEDS ORDERED: DEXTROSE 50% 50 ML VIAL IV PRN (08:52)
[2024-06-20] MEDS: MAGNESIUM SULFATE 2 GM/50 ML BAG IV PRN (09:10)
[2024-06-20] MEDS: SODIUM BICARBONATE 650 MG TABLET PO ONE (09:10)
[2024-06-20] MEDS: METOPROLOL SUCCINATE 25 MG TAB.XL.24H PO SCH (09:11)
[2024-06-20] MEDS: Dorzolamide-Timolol [Cosopt] 22.3-6.8 mg/mL drops OU SCH (09:11)
[2024-06-20] MEDS: INSULIN LISPRO 1 UNIT/0.01 ML UNIT SQ SCH (12:00)
[2024-06-21 06:35] LABS: ALT/SGPT 15 U/L (<40); AST/SGOT 23 U/L (<40); Albumin 3.2 gm/dL (3.2-5.2); Alkaline Phosphatase 52 U/L (39-117); Bilirubin,Direct 0.3 mg/dL (<0.3); Bilirubin,Total 0.5 mg/dL (0.1-1.0); Blood Urea Nitrogen 20 mg/dL (8-23); Calcium 8.5 mg/dL (8.6-10.4); Carbon Dioxide 21 mmol/L (22-30); Chloride 107 mmol/L (96-108); Globulin 3.2 gm/dL (2.2-3.7); Glomerular Filtration Rate 86; Glucose 165 mg/dL (70-105); Lactate Dehydrogenase 230 U/L (135-225); Phosphorous 2.4 mg/dL (2.5-4.5); Potassium 3.8 mmol/L (3.3-5.1); Sodium 139 mmol/L (133-145); Triglycerides 81 mg/dL (<150); Uric Acid 5.6 mg/dL (2.5-8.0)
[2024-06-21 07:45] VITALS: O2SAT 96
[2024-06-21 12:36] VITALS: TEMP 97.2
== END 2024-06-21 12:44 | disposition home or self-care (01) | DRG 638 ==
LOC: ED 20:13 → MEDSUR 20:13
PROVIDERS: ADMIT Internal Medicine; ATTEND Internal Medicine